=== PATIENT | female | born 1985 | race Caucasian/White ===

== ENCOUNTER 2017-10-25 12:48 | Emergency (ER) | payer OTHER ==
[~2017-10-25] VITALS: Ht 170.2 cm; Wt 158.8 kg
[~2017-10-25 12:48] MED LIST: B-COMPLEX PLUS1 EACH PO; BACTRIM DS TAB1 EACH PO; BACTROBAN22 GM TOP; CELEXA20 MG PO; FISH OIL 1,0001 EAC2 PO; KEFLEX500 MG PO; MIRENA1 EACH IY; [UNRECOGNIZED DRUG - OTHER]
[2017-10-25] MEDS ORDERED: ESCITALOPRAM OX10 MG PO (13:14)
[2017-10-25] MEDS ORDERED: BYDUREON P2 MG/0.65 (13:14)
[2017-10-25] MEDS ORDERED: CYCLOBENZAPRINE5 MG PO (13:14)
--- NOTE | 2017-10-26 08:04 | EKG ---
[facility] [address] [facility] [place], [place] [address] Signed Normal sinus rhythm Normal ECG No previous ECGs available Confirmed by SADIE LAMAR MD [id number] on 10/26/2017 8:04:19 AM Electronically Signed By: SADIE LAMAR MD 10/26/17 0804 PATIENT NAME: ABY BOURGEOIS Electrocardiogram DATE OF : 81 PHYSICIAN: SADIE LAMAR MD REPORT #: [id number] REPORT IS CONFIDENTIAL AND NOT TO BE RELEASED WITHOUT AUTHORIZATION
== END 2017-10-25 16:29 | disposition home or self-care (01) ==
LOC: ED 12:48
DX: R51 Headache (principal); H53.8 Other visual disturbances; R47.81 Slurred speech; E11.9 Type 2 diabetes mellitus without complications; F32.9 Major depressive disorder, single episode, unspecified; F41.9 Anxiety disorder, unspecified; E66.3 Overweight; Z88.0 Allergy status to penicillin; Z79.899 Other long term (current) drug therapy
CPT/HCPCS: 70450; 80053; 84703; 85025; 93005; 93010; 99284

== ENCOUNTER 2018-01-30 17:10 | Emergency (ER) | payer OTHER ==
[~2018-01-30] VITALS: Ht 170.2 cm; Wt 150.6 kg
[~2018-01-30 17:10] MED LIST changes: +BYDUREON P2 MG/0.65; +CYCLOBENZAPRINE5 MG PO; +ESCITALOPRAM OX10 MG PO
[2018-01-30] MEDS ORDERED: CLONIDINE HCL0.1 M1 PO (18:07)
[2018-01-30] MEDS ORDERED: XANAX0.5 MG PO (18:07)
== END 2018-01-30 18:40 | disposition home or self-care (01) ==
LOC: ED 17:10
DX: R51 Headache (principal); F41.9 Anxiety disorder, unspecified; I10 Essential (primary) hypertension; F17.200 Nicotine dependence, unspecified, uncomplicated; Z88.0 Allergy status to penicillin; Z79.899 Other long term (current) drug therapy
CPT/HCPCS: 96374; 96375; 99283; J1200; J1885; J2765